=== PATIENT | male | born 1990 | race Caucasian/White ===

== ENCOUNTER 2020-06-20 20:15 | Emergency (ER) | payer OTHER ==
[2020-06-20] MEDS ORDERED: Lidocaine 1% PF 5 ML VIAL ONE (20:25)
== END 2020-06-20 20:50 | disposition home or self-care (01) ==
LOC: BURERS 20:15
DX: S61.411A Laceration without foreign body of right hand, initial encounter (principal); W01.0XXA Fall on same level from slipping, tripping and stumbling without subsequent striking against object, initial encounter
CPT/HCPCS: 12001